=== PATIENT | female | born 1980 | race Two or more races ===

== ENCOUNTER 2023-12-01 12:21 | Emergency (ER) | payer OTHER ==
[~2023-12-01] VITALS: Ht 167.6 cm; Wt 90.7 kg
[2023-12-01] MEDS ORDERED: DEXAMETHASONE SODIUM PHOSPHATE 4 MG/ML VIAL IV STA (13:15)
[2023-12-01] MEDS ORDERED: ALPRAzolam 1 MG TABLET PO STA (13:21)
[2023-12-01 13:51] LABS: HEMATOCRIT 40.8 % (36.0-45.00); HEMOGLOBIN 13.8 g/dL (12.0-15.00); MEAN CELL VOLUME 95.5 fL (80.00-100.00); MEAN CORPUSCULAR HEMOGLOBIN 32.4 pg (27.00-32.0); MEAN CORPUSCULAR HGB CONC 33.9 g/dl (32.0-36.0); PLATELET COUNT 246 K/uL (150-450); RED BLOOD COUNT 4.27 M/uL (4.00-6.00); RED CELL DISTRIBUTION WIDTH 13.4 % (11.5-14.5)
[2023-12-01 14:23] LABS: CALCIUM 8.9 mg/dL (8.5-10.1); CREATININE SERUM 0.75 mg/dL (0.55-1.02); GFR 85.16; POTASSIUM 3.68 mEq/L (3.5-5.1)
== END 2023-12-01 17:22 | disposition home or self-care (01) ==
LOC: ER 12:21
PROVIDERS: General Practice
DX: S00.12XA Contusion of left eyelid and periocular area, initial encounter (principal); Y08.89XA Assault by other specified means, initial encounter; Y93.89 Activity, other specified; Y92.89 Other specified places as the place of occurrence of the external cause
CPT/HCPCS: 36415; 70486; 72040; 73130; 96365; 99284; J1100